=== PATIENT | male | born 1990 | race Caucasian/White ===

== ENCOUNTER 2016-07-05 00:06 | Emergency (ER) | payer MEDICARE, MEDICAID ==
[2016-07-05] MEDS ORDERED: Sodium Chloride 0.9% 1,000 ML IV ONE (00:47)
[2016-07-05] MEDS ORDERED: Ondansetron 4 MG/2 ML SDV IVPUSH ONE (00:47)
[2016-07-05] MEDS ORDERED: SUMAtriptan 6 MG/0.5 ML SDV SUBCUT ONE (00:47)
--- NOTE | 2016-07-05 01:14 | EDM.PDOC ---
ED HPI GENERAL MEDICAL PROBLEM - General Chief Complaint: Headache Stated Complaint: VOMITING Time Seen by Provider: 07/05/16 00:06 Source of Information: Reports: Patient History Limitations: Reports: No Limitations - History of Present Illness INITIAL COMMENTS - FREE TEXT/NARRATIVE: 25 years old w reyna came to the ed due to the worst headache in his live, located behind his mid forehead. Pt has every 4 weeks this headache, but today is it the worst ever with N/V. In the past, pt took tylenol. Tylenol did not work today. No trauma no other acute medical issues. 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, Aspirin Frontal Head Pain Score (Numeric/FACES): 8 Abdominal Pain Score (Numeric/FACES): 5 - Related Data Allergies Allergy/AdvReac Type Severity Reaction Status Date / Time No Known Allergies Allergy Verified 07/05/16 00:19 Home Meds: Home Meds QUEtiapine Fumarate [Seroquel Xr] 1 tab PO BEDTIME 07/05/16 [History] lamoTRIgine [Lamictal] 75 mg PO BEDTIME 07/05/16 [History] Past Medical History Respiratory History: Reports: Asthma Psychiatric History: Reports: Bipolar, Schizophrenia - Past Surgical History HEENT Surgical History: Reports: Oral Surgery Social & Family History - Family History Family Medical History: Noncontributory - Tobacco Use Smoking Status *Q: Never Smoker Second Hand Smoke Exposure: No - Caffeine Use Caffeine Use: Reports: Soda - Recreational Drug Use Recreational Drug Use: No ED ROS GENERAL - Review of Systems Review Of Systems: See Below Constitutional: Reports: No Symptoms HEENT: Reports: Other (headache) Respiratory: Reports: No Symptoms Cardiovascular: Reports: No Symptoms Endocrine: Reports: No Symptoms GI/Abdominal: Reports: Nausea, Vomiting : Reports: No Symptoms Musculoskeletal: Reports: No Symptoms Skin: Reports: No Symptoms Neurological: Reports: No Symptoms Psychiatric: Reports: No Symptoms Hematologic/Lymphatic: Reports: No Symptoms Immunologic: Reports: No Symptoms - Physical Exam Exam: See Below Exam Limited By: No Limitations General Appearance: Alert, WD/WN, Mild Distress, Thin Eye Exam: Bilateral Eye: Normal Inspection Ears: Normal External Exam Nose: Normal Inspection, Normal Mucosa Throat/Mouth: Normal Inspection, Normal Lips, Normal Teeth Head Exam: Atraumatic, Normocephalic Neck: Normal Inspection, Supple, Non-Tender, Full Range of Motion Respiratory/Chest: No Respiratory Distress, Lungs Clear, Normal Breath Sounds, No Accessory Muscle Use Cardiovascular: Normal Peripheral Pulses, Regular Rate, Rhythm, No Edema, No Gallop, No JVD, No Murmur GI/Abdominal: Normal Bowel Sounds, Soft, Non-Tender, No Organomegaly, No Distention, No Abnormal Bruit (Male) Exam: Deferred Rectal (Males) Exam: Deferred Neuro Exam (Abbreviated): Alert, Oriented, CN II-XII Intact, Normal Cognition, Normal Gait, Normal Reflexes, No Motor/Sensory Deficits Back Exam: Normal Inspection, Full Range of Motion Extremities: Normal Inspection, Normal Range of Motion, Non-Tender, No Pedal Edema, Normal Capillary Refill Psychiatric: Normal Affect, Normal Mood Skin Exam: Warm, Dry, Intact, Normal Color, No Rash Course - Vital Signs Text/Narrative:: 25 years old w m came to the ed due to the worst headache in his live, located behind his mid forehead. Pt has every 4 weeks this headache, but today is it the worst ever with N/V. In the past, pt took tylenol. Tylenol did not work today. No trauma no other acute medical issues. Photophobia PE: worst headache, nausea Labs: CBC, BMP nl Imaging: CT head neg Impression: Migraine headache Tx: Imitrex, NS Reexam: Improved plan: D/C with instructions Last Recorded V/S: Last Vital Signs Temp 36.8 C 07/05/16 00:21 Pulse 58 L 07/05/16 00:21 Resp 16 07/05/16 00:21 BP 110/78 07/05/16 00:21 Pulse Ox 99 07/05/16 00:21 - Orders/Labs/Meds Orders: Active Orders 24 hr Category Date Time Status Head wo Cont [CT] Stat Exams 07/05/16 00:38 Taken Labs: Laboratory Tests 07/05/16 07/05/16 Range/Units 01:00 01:00 WBC 6.3 (4.5-12.0) X10-3/uL RBC 5.43 (4.30-5.75) x10(6)uL Hgb 15.2 (11.5-15.5) g/dL Hct 45.2 (30.0-51.3) % MCV 83.2 (80-96) fL MCH 28.0 (27.7-33.6) pg MCHC 33.6 (32.2-35.4) g/dL RDW 11.8 (11.5-15.5) % Plt Count 299 (125-369) X10(3)uL MPV 7.8 (7.4-10.4) fL Neut % (Auto) 60.4 (46-82) % Lymph % (Auto) 31.8 (13-37) % [place] % (Auto) 5.1 (4-12) % Eos % (Auto) 2 (1.0-5.0) % Baso % (Auto) 1 (0-2) % Neut # (Auto) 3.9 (1.6-8.3) # Lymph # (Auto) 2.0 (0.6-5.0) # [place]on # (Auto) 0.3 (0.0-1.3) # Eos # (Auto) 0.1 (0.0-0.8) # Baso # (Auto) 0.0 (0.0-0.2) # Sodium 139 (135-145) mmol/L Potassium 3.5 (3.5-5.3) mmol/L Chloride 103 (100-110) mmol/L Carbon Dioxide 28 (23-29) mmol/L BUN 6 (5-20) mg/dL Creatinine 0.9 (0.6-1.3) mg/dL Est Cr Clr Drug Dosing 146.63 mL/min Estimated GFR (MDRD) > 60 (>60) BUN/Creatinine Ratio 6.7 L (9-20) Glucose 113 (80-116) mg/dL Calcium 9.5 (8.6-10.2) mg/dL Meds: Medications Discontinued Medications Generic Name Dose Route Start Last Admin Trade Name Freq PRN Reason Stop Dose Admin Sodium Chloride 1,000 mls @ 999 mls/hr 07/05/16 00:47 07/05/16 01:15 Normal Saline IV 07/05/16 01:47 999 mls/hr .BOLUS ONE Administration Ondansetron HCl 8 mg 07/05/16 00:47 07/05/16 01:27 Zofran IVPUSH 07/05/16 00:48 8 mg ONETIME ONE Administration Sumatriptan Succinate 6 mg 07/05/16 00:47 07/05/16 01:25 Imitrex SUBCUT 07/05/16 00:48 6 mg ONETIME ONE Administration Departure - Departure Time of Disposition: 02:01 Disposition: Home, Self-Care 01 Condition: good Clinical Impression: Migraine Qualifiers: Migraine type: without aura Status migrainosus presence: without status migrainosus Intractability: not intractable Qualified Code(s): G43.009 - Migraine without aura, not intractable, without status migrainosus - Discharge Information Referrals: Laith Moralez MD [Primary Care Provider] - Forms: ED Department Discharge Additional Instructions: Please f/u with your PMD or neurologist, consider MRI, please come back if your symptoms get worse acutely - My Orders Last 24 Hours: My Active Orders 07/05/16 00:38 Head wo Cont [CT] Stat - Assessment/Plan Last 24 Hours: My Active Orders 07/05/16 00:38 Head wo Cont [CT] Stat
[2016-07-05 02:24] VITALS: BP 111/78
== END 2016-07-05 02:22 | disposition home or self-care (01) ==
LOC: FB.ED 00:06
DX: G43.009 Migraine without aura, not intractable, without status migrainosus (principal); J45.909 Unspecified asthma, uncomplicated; F31.9 Bipolar disorder, unspecified; F20.9 Schizophrenia, unspecified
CPT/HCPCS: 36415; 70450; 80048; 85025; 96361; 96372; 96374; 99284; J2405; J3030; J7040

== ENCOUNTER 2016-08-10 15:16 | Observation (INO) | payer OTHER, MEDICARE, MEDICAID ==
[2016-08-10] MEDS ORDERED: Morphine 2 MG/ML Syringe IVPUSH ONE (15:23)
[2016-08-10] MEDS ORDERED: Morphine 2 MG/ML Syringe ONE (15:24)
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
[2016-08-10] MEDS ORDERED: Iopamidol 755 Mg/ML 100 ML Bottle IV SCH (16:30)
[2016-08-10] MEDS: Lactated Ringers 1,000 ML IV SCH (18:04)
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
[2016-08-10] MEDS: Ketorolac 30 MG/ML SDV IVPUSH PRN (18:52)
[2016-08-10] MEDS: Carboxymethylcellulose Sodium 0.5% Ophth Soln 15 ML Bottle EYEBOTH PRN ×2 (19:50→21:55)
[2016-08-10] MEDS ORDERED: lamoTRIgine 100 MG Tab PO SCH (21:00)
[2016-08-10] MEDS ORDERED: lamoTRIgine 25 MG Tab PO SCH (21:00)
[2016-08-10] MEDS ORDERED: QUEtiapine 50 MG Tab.SR PO SCH (21:00)
[2016-08-10] MEDS: QUEtiapine 100 MG Tab ONE ×2 (21:15→21:44)
[2016-08-11] MEDS: Lactated Ringers 1,000 ML IV SCH (03:58)
[2016-08-11] MEDS: Ketorolac 30 MG/ML SDV IVPUSH PRN (04:10)
[2016-08-11] MEDS: Carboxymethylcellulose Sodium 0.5% Ophth Soln 15 ML Bottle EYEBOTH PRN (08:02)
[2016-08-11 09:07] VITALS: BP 115/73
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
--- NOTE | 2016-08-11 11:05 | CR ---
INDICATION: Trauma. PELVIS: A single frontal view of the pelvis was obtained. The lowermost portions of the inferior pubic rami were not fully included on the study. A fracture, dislocation, or other significant bone or joint abnormality was not identified. MTDD
--- NOTE | 2016-08-11 11:08 | CR ---
INDICATION: Trauma. CHEST: A single AP supine view of the chest was obtained. Very poor inspiration emphasizes markings. A definite active infiltrate or effusion or pneumothorax was not identified. The heart, mediastinum, and bony thorax were unremarkable. IMPRESSION: No active disease. Limited study with poor inspiration and supine positioning. Full inspiration PA and lateral views may be helpful when clinically possible. MTDD
== END 2016-08-11 10:45 | disposition home or self-care (01) ==
LOC: FB.ED 15:16 → FB.MS 16:51
PROVIDERS: ADMIT Surgery; ATTEND Surgery
DX: S22.079A Unspecified fracture of T9-T10 vertebra, initial encounter for closed fracture (principal); J45.909 Unspecified asthma, uncomplicated; F31.9 Bipolar disorder, unspecified; Z79.899 Other long term (current) drug therapy; V49.88XA Car occupant (driver) (passenger) injured in other specified transport accidents, initial encounter; Z98.890 Other specified postprocedural states
CPT/HCPCS: 36415; 51702; 70450; 71010; 71260; 72125; 72170; 74177; 80048; 81001; 85027; 86850; 86900; 86901; 96374; 99291; A9270; G0390; G0480; J1885; J2270; J7120; Q9967; 96361; 96375; 96376; 99285; G0378

== ENCOUNTER 2018-07-18 05:36 | Emergency (ER) | payer MEDICARE ==
--- NOTE | 2018-07-18 07:23 | EDM.PDOC ---
ED HPI GENERAL MEDICAL PROBLEM - General Stated Complaint: SORE THROAT Time Seen by Provider: 07/18/18 06:15 Source of Information: Reports: Patient History Limitations: Reports: No Limitations - History of Present Illness INITIAL COMMENTS - FREE TEXT/NARRATIVE: She presents with concern for a sore throat since morning. Note that his hard to talk and sometimes he feels short of breath. No fever. Has had a little bit of difficulty swallowing today. He is symptoms of continued to worsen over the past 4 days, he also has a runny nose, and in a little bit of pain in his ears. Slight cough, no chills or sweats. No nausea, vomiting or diarrhea. Has tried extra strength Tylenol and ibuprofen, neither of which seemed to help. Saltwater rinses seem to make it worse. Some of his friends at [employer] have been sick. - Related Data Allergies Allergy/AdvReac Type Severity Reaction Status Date / Time No Known Allergies Allergy Verified 07/19/18 07:02 Home Meds: Home Meds QUEtiapine [SEROquel] 25 mg PO DAILY PRN 08/10/16 [History] lamoTRIgine [Lamictal] 100 mg PO BEDTIME 08/10/16 [History] Penicillin V Potassium 500 mg PO BID 10 Days #20 tablet 07/18/18 [Rx] .Invega 1 tab PO DAILY 07/19/18 [History] Ibuprofen 600 mg PO QID 07/19/18 [History] Past Medical History Respiratory History: Reports: Asthma Psychiatric History: Reports: Bipolar, Schizophrenia - Past Surgical History HEENT Surgical History: Reports: Oral Surgery Social & Family History - Family History Family Medical History: Noncontributory - Tobacco Use Smoking Status *Q: Current Status Unknown - Caffeine Use Caffeine Use: Reports: Coffee, Energy Drinks, Soda, Tea ED ROS GENERAL - Review of Systems Review Of Systems: ROS reveals no pertinent complaints other than HPI. ED EXAM, GENERAL - Physical Exam Exam: See Below Free Text/Narrative:: Gen.: Alert, pleasant distress. Tympanic membranes are clear bilaterally with normal light reflex and throat is erythematous and red, pustular lesions, tonsils not enlarged there is no exudates. Uvula is midline, mucous membranes are moist. Shotty cervical lymphadenopathy. Lungs are clear throughout with no wheezes or crackles and heart is regular rate and rhythm. Course - Vital Signs Text/Narrative:: Worsening pharyngitis over 4 days, though does appear very red and irritated. Rapid strep test is negative. Given the appearance, will place on penicillin VK 500 mg twice a day. discussed signs or symptoms which would prompt need for follow-up, all questions were answered Last Recorded V/S: Last Vital Signs Temp 36.3 C 07/18/18 05:40 Pulse 57 L 07/18/18 07:30 Resp 16 07/18/18 07:30 BP 121/71 07/18/18 07:30 Pulse Ox 98 07/18/18 07:30 Departure - Departure Time of Disposition: 07:21 Disposition: Home, Self-Care 01 Condition: Good Clinical Impression: Pharyngitis - Discharge Information *PRESCRIPTION DRUG MONITORING PROGRAM REVIEWED*: Not Applicable *COPY OF PRESCRIPTION DRUG MONITORING REPORT IN PATIENT KAIT: Not Applicable Prescriptions: Penicillin V Potassium 500 mg PO BID 10 Days #20 tablet Instructions: Pharyngitis Referrals: Laith Moralez MD [Primary Care Provider] - Additional Instructions: continue with over the counter analgesics - tylenol, ibuprofen take two doses of antibiotics today -- 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
[2018-07-19 06:52] VITALS: BP 121/71
== END 2018-07-18 07:40 | disposition home or self-care (01) ==
LOC: FB.ED 05:36
DX: J02.9 Acute pharyngitis, unspecified (principal); F31.9 Bipolar disorder, unspecified; F20.9 Schizophrenia, unspecified; Z79.899 Other long term (current) drug therapy
CPT/HCPCS: 87081; 87880-QW; 99282; 99283

== ENCOUNTER 2018-07-18 23:24 | Emergency (ER) | payer MEDICARE ==
--- NOTE | 2018-07-18 23:37 | EDM.PDOC ---
ED HPI GENERAL MEDICAL PROBLEM - General Stated Complaint: TROUBLE SWALLOWING Time Seen by Provider: 07/18/18 23:24 Source of Information: Reports: Patient History Limitations: Reports: No Limitations - History of Present Illness INITIAL COMMENTS - FREE TEXT/NARRATIVE: 27 y.o.w.m came to the ED because of a sore throat. Pt was dx'd with pharyngitis and sent home with a prescription of Abx. Pt stated, after he took the second pill, he felt some discomfort swallowing. Pt stated he as some kind of discomfort at his ant neck, no trauma. No rash, no SOB. No other acute med issues. BP Temp 97.8 BP 129/92 Pulse ox 100% RR 16 Pulse 76 Onset Date: 07/18/18 Onset Time: 07:00 Duration: Hour(s):, Constant, Intermittent Location: Reports: Neck Quality: Reports: Dull Severity: Mild Improves with: Reports: Rest Worsens with: Reports: Movement Context: Reports: Sick Contact Associated Symptoms: Reports: No Other Symptoms - Related Data Allergies Allergy/AdvReac Type Severity Reaction Status Date / Time No Known Allergies Allergy Verified 08/10/16 21:22 Home Meds: Home Meds QUEtiapine [SEROquel] 25 mg PO DAILY PRN 08/10/16 [History] lamoTRIgine [Lamictal] 100 mg PO BEDTIME 08/10/16 [History] Penicillin V Potassium 500 mg PO BID 10 Days #20 tablet 07/18/18 [Rx] Past Medical History Respiratory History: Reports: Asthma Psychiatric History: Reports: Bipolar, Schizophrenia - Past Surgical History HEENT Surgical History: Reports: Oral Surgery Social & Family History - Family History Family Medical History: Noncontributory - Caffeine Use Caffeine Use: Reports: Coffee, Energy Drinks, Soda, Tea ED ROS ENT - Review of Systems Review Of Systems: See Below Constitutional: Reports: No Symptoms HEENT: Reports: Other (dysphagia) Respiratory: Reports: No Symptoms Cardiovascular: Reports: No Symptoms Endocrine: Reports: No Symptoms GI/Abdominal: Reports: No Symptoms : Reports: No Symptoms Musculoskeletal: Reports: No Symptoms Skin: Reports: No Symptoms Neurological: Reports: No Symptoms Psychiatric: Reports: No Symptoms Hematologic/Lymphatic: Reports: No Symptoms Immunologic: Reports: No Symptoms ED EXAM, ENT - Physical Exam Exam: See Below Exam Limited By: No Limitations General Appearance: Alert, WD/WN, Mild Distress Eye Exam: Bilateral Eye: Normal Inspection Ears: Normal External Exam Nose: Normal Inspection Mouth/Throat: Normal Inspection, Normal Gums, Normal Lips Head: Atraumatic, Normocephalic Neck: Normal Inspection, Supple, Non-Tender, Full Range of Motion Respiratory/Chest: No Respiratory Distress Cardiovascular: Normal Peripheral Pulses, Regular Rate, Rhythm, No Edema, No Gallop, No Rub GI/Abdominal: Normal Bowel Sounds, Soft, Non-Tender, No Organomegaly, No Abnormal Bruit, No Mass, Pelvis Stable (Male) Exam: Deferred Rectal (Males) Exam: Deferred Back: Normal Inspection, Full Range of Motion Extremities: Normal Inspection, Normal Range of Motion, Non-Tender, Normal Capillary Refill Neurological: Alert, Oriented, CN II-XII Intact, Normal Cognition, Normal Gait Psychiatric: Normal Affect, Normal Mood Skin: Warm, Dry, Intact, Normal Color Lymphatic: No Adenopathy Course - Vital Signs Text/Narrative:: 27 y.o.w.m came to the ED because of a sore throat. Pt was dx'd with pharyngitis and sent home with a prescription of Abx. Pt stated, after he took the second pill, he felt some discomfort swallowing. Pt stated he as some kind of discomfort at his ant neck, no trauma. No rash, no SOB. No other acute med issues. BP Temp 97.8 BP 129/92 Pulse ox 100% RR 16 Pulse 76 PE: WNWD W M with H/O pharyngitis, seen yesterday in the ed Impression: Pharyngitis Tx: none Reexam: Pt was able to take water po well in te ed. Plan: D/C with instructions Departure - Departure Time of Disposition: 23:44 Disposition: Home, Self-Care 01 Condition: Good Clinical Impression: Acute pharyngitis Qualifiers: Pharyngitis/tonsillitis etiology: unspecified etiology Qualified Code(s): J02.9 - Acute pharyngitis, unspecified - Discharge Information Referrals: Laith Moralez MD [Primary Care Provider] - Additional Instructions: Please cont current meds, Tylenol/Advil for pain, please f/u, come back if your symptoms get worse acutely
[2018-07-19 07:24] VITALS: BP 129/92
== END 2018-07-18 23:55 | disposition home or self-care (01) ==
LOC: FB.ED 23:24
DX: J04.0 Acute laryngitis (principal)
CPT/HCPCS: 99282

== ENCOUNTER 2025-01-23 04:34 | Emergency (ER) | payer MEDICARE, MEDICAID ==
[2025-01-23] MEDS ORDERED: Sodium Chloride 0.9% 10 ML Syringe FLUSH PRN (05:00)
[2025-01-23] MEDS: Ketorolac 30 MG/ML SDV IVPUSH ONE (05:06)
[2025-01-23] MEDS: Ondansetron 4 MG/2 ML SDV IVPUSH ONE (05:06)
[2025-01-23 05:15] LABS: BASOPHILS ABSOLUTE AUTO 0.1 x10-3/uL (0.0-0.3); BASOPHILS PERCENT AUTO 0.8 % (0.3-3.8); EOSINOPHILS ABSOLUTE AUTO 0.5 x10-3/uL (0.0-0.6); EOSINOPHILS PERCENT AUTO 5.8 % (0.1-6.8); LYMPHOCYTES ABSOLUTE AUTO 2.6 x10-3/uL (0.5-4.5); LYMPHOCYTES PERCENT AUTO 31.4 % (15.8-45.3); MEAN PLATELET VOLUME 7.3 fL (6.7-11.0); MONOCYTES ABSOLUTE AUTO 0.5 x10-3/uL (0.0-1.2); MONOCYTES PERCENT AUTO 6.2 % (5.5-15.2); NEUTROPHILS ABSOLUTE AUTO 4.6 x10-3/uL (1.7-6.9); NEUTROPHILS PERCENT AUTO 55.8 % (40.3-71.8); PLATELET COUNT,PLT 301 x10(3)uL (117-477); RED BLOOD CELL COUNT 5.60 x10(6)uL (3.90-5.90); RED CELL DISTRIBUTION WIDTH 13.3 % (12.4-15.0); WHITE BLOOD CELL COUNT,WBC 8.3 x10-3/uL (3.2-10.1)
[2025-01-23 05:17] LABS: BLOOD UREA NITROGEN,BUN 7 mg/dL (7-18); CARBON DIOXIDE,CO2 29 mmol/L (21-32); CHLORIDE,CL 104 mmol/L (100-110); CREATININE 0.9 mg/dL (0.70-1.30); ESTIMATED GFR 114 mL/min (>60); GLUCOSE RANDOM 108 mg/dL (80-116); POTASSIUM,K 3.6 mmol/L (3.5-5.3); SODIUM,NA 143 mmol/L (135-145)
[2025-01-23 05:23] LABS: A/G RATIO 1.1; ALANINE AMINOTRANSFERASE,ALT 27 U/L (12-36); ASPARTATE AMNIOTRANSFERASE,AST 14 IU/L (5-25); BILIRUBIN TOTAL 0.5 mg/dL (0.1-1.3); PROTEIN TOTAL,TP 7.6 g/dL (6.0-8.0)
[2025-01-23 05:35] LABS: LACTIC ACID 2.0 mmol/L (0.4-2.0)
[2025-01-23] MEDS: SUMAtriptan 6 MG/0.5 ML SDV SUBCUT ONE (05:49)
[2025-01-23 06:30] VITALS: BP 132/85; PULSE 64
== END 2025-01-23 06:38 | disposition home or self-care (01) ==
LOC: FB.ED 04:34
DX: G43.909 Migraine, unspecified, not intractable, without status migrainosus (principal); E86.0 Dehydration; J45.909 Unspecified asthma, uncomplicated; Z88.2 Allergy status to sulfonamides; Z79.899 Other long term (current) drug therapy
CPT/HCPCS: 36415; 80053; 83605; 83690; 83735; 85025; 86140; 87428; 96361; 96372; 96374; 96375; 99283; 99284; J2405; J3030; J7030; J1885